=== PATIENT | male | born 1960 | race Caucasian/White ===

== ENCOUNTER 2024-10-30 13:33 | Emergency (ER) | payer BC ==
[~2024-10-30] VITALS: Ht 172.7 cm; Wt 80.8 kg
[2024-10-30 13:57] VITALS: TEMP 98
--- NOTE | 2024-10-30 14:02 | Physician Documentation ---
History of Present Illness Stated Complaint: VOMITING AND DIARRHEA HPI Patient is a 64-year-old man that presents to the emergency department for evaluation of nausea vomiting diarrhea times 12 hours. Course that he ate a tuna sandwich from toe goes asked night is concerned that he may have gotten food poisoning. Reports that has nausea has somewhat subsided diarrhea was significant but has not had any episodes in the last couple hours. Reports low- grade fevers. Medication Reconciliation Scheduled Azithromycin (Azithromycin), 1 TAB PO UD ONDANSETRON ODT 4mg tablet (Ondansetron Odt), 4 MG PO Q6H Review of Systems ROS As stated above in the HPI, otherwise all systems are reviewed and negative. Physical Exam Physical Exam VITALS: Reviewed and as above. GENERAL: Alert, no apparent distress. HEENT: Normocephalic, atraumatic, PERRL, EOMI, dry mucosa, no erythema RESPIRATORY: Lungs clear, normal breath sounds, no respiratory distress. CHEST: No accessory muscle use, no retractions CV: Regular rate, rhythm, no edema, no murmur, No: JVD GI: Soft, non-tender, bowels sounds present, no rebound, guarding, or rigidity BACK: No CVA tenderness, or swelling MUSCULOSKELETAL No deformities, no edema SKIN: Warm and dry, no rash NEURO: Oriented x4, No motor or sensory deficit PSYCH: Normal mood and affect, no agitation Medical Decision Making Findings This patient presents with nausea, vomiting & diarrhea. Differential diagnosis includes possible acute gastroenteritis. Abdominal exam without peritoneal signs. Currently euvolemic without evidence of dehydration. Doubt invasive bacteria causing diarrhea such as C diff (no recent antibiotics), shiga toxin (non bloody). No recent travel. Patient is not immunocompromised. Diarrhea is non bloody so less likely inflammatory bowel disease. No evidence of surgical abdomen or other acute medical emergency including bowel obstruction, viscus perforation, vascular catastrophe, atypical appendicitis, acute cholecystitis, UGIB, thyrotoxicosis, or diverticulitis at this time. Presentation not consistent with other acute, emergent causes of vomiting / diarrhea at this time. No indication for abdominal imaging. Differential Dx:Considerations: Include: AAA, Angina/NV, Aortic dissection, Appendicitis, Bowel obstruction, Cholangitis, Cholelithasis, Constipation, Diverticular disease, Esophageal rupture, Esophagitis, Gastritis/PUD, Gastro enteritis, GI hemorrhage, Hernia, Hepatitis, Inflammatory BD, Ischemic bowel, Pancreatitis, Porphyria, Testicular torsion, Trauma, intraabdominal, Urinary obstruction, Urinary tract infection, Urolithiasis, Other Departure Disposition: HOME / SELF CARE / HOMELESS Impression: Primary Impression: Abdominal pain Additional Impression: Gastritis Discharge Instructions: Gastritis, Adult, [id number] Additional Instructions: You were seen for gastroenteritis. Labs and physical exam are reassuring at this time. We have prescribed an antibiotic for your for concern for infectious diarrhea. Take antibiotics until they are completed. Increase fluids [id number] Imodium as needed for diarrhea and Zofran for nausea if needed. Follow up with your primary care provider. Return to the emergency department if you develop any worsening recurrent symptoms or any additional concerning symptoms that we discussed here today. Referrals: NO PRIMARY CARE PROVIDER (PCP) Prescriptions ONDANSETRON ODT 4mg tablet (ONDANSETRON ODT) 4 Mg Tab.rapdis 4 MG PO Q6H for 5 Days, TAB Prov: MELVINA DOMÍNGUEZ 10/30/24 Azithromycin (Azithromycin) 250 Mg Tablet 1 TAB PO UD for 5 Days, #6 TAB 2 the first day followed by 1 for days 2-5 Prov: MELVINA DOMÍNGUEZ 10/30/24 Education Educated: Patient, Family Educated regarding: diagnosis, treatment, need for follow up Signature Scribe Signature: A Attestation: Scribed for Melvina Domínguez by ALFONSO Dorsey . 11/01/24 17:37 MELVINA DOMÍNGUEZ Oct 30, 2024 14:01
[2024-10-30 15:20] LABS: MEAN PLATELET VOLUME 9.9 FL (7.4-10.4); RED CELL DISTRIBUTION WIDTH 12.9 % (11.5-14.5)
[2024-10-30 15:31] LABS: CREATININE 0.86 MG/DL (0.60-1.10); TOTAL CARBON DIOXIDE 20.4 MMOL/L (24-32); eCRCL 82 ML/MIN; eGFR 89 ML/MIN
[2024-10-30 16:37] LABS: LEUKOCYTE ESTERASE ,URINE NEGATIVE (Neg); NITRITES, URINE NEGATIVE (Neg); OCCULT BLOOD,URINE NEGATIVE (Neg)
[2024-10-30 16:52] LABS: UA COLLECTION TYPE CLN CATCH MIDSTREAM
[2024-10-30 16:54] LABS: MUCUS STRANDS MANY /LPF (Neg); SQUAMOUS EPITHELIAL CELL,UR FEW /LPF (FEW)
[2024-10-30] MEDS ORDERED: AZIT250T12 PO (17:19)
[2024-10-30] MEDS ORDERED: ONDA-243 PO (17:52)
[2024-10-30 18:10] VITALS: BP 135/72; PULSE 81; RESP 18; O2SAT 98
== END 2024-10-30 18:11 | disposition home or self-care (01) ==
LOC: ER 13:34
DX: K29.70 Gastritis, unspecified, without bleeding (principal); Z20.822 Contact with and (suspected) exposure to COVID-19
CPT/HCPCS: 36415; 80053; 81001; 83690; 85025; 87811; 99283